=== PATIENT | male | born 1985 | race Asian ===

== ENCOUNTER → 2024-11-28 | Day surgery (SDC) | payer OTHER ==
[~2024-11-28] MED LIST: BUPIVACAINE 0.5%/EPI 30 ML SDV INJ ONE; BUPIVACAINE LIPOSOME/PF 266 MG/20 ML IJ ONE; CBD GUMMIES PO; CYCLOBENZAPRINE10 MG PO; DEXAMETHASONE SOD PHOS INJ 4 MG/ML SDV ONE; FENTANYL CITRATE/PF 100MCG/2 ML INJ ONE; HYDROCODON-ACE1 EAC9 PO; LIDOCAINE HCL 2% LOCAL INJ 5 ML SDV VIAL INJ ONE; MAGNESIUM PO; MIDAZOLAM HCL 2 MG/2 ML VIAL ONE; ONDANSETRON HCL INJ 2MG/ML 2ML 2 MG/ML VIAL ONE; PROPOFOL IV EMULSION 10 MG/ML 20 ML VIAL ONE; SUCCINYLCHOLINE CHLORIDE 20 MG/ML 10ML VIAL ONE
[2024-11-28] MEDS: LACTATED RINGER'S 1,000 ML ONE (06:21)
[2024-11-28] MEDS: CEFAZOLIN SODIUM 2 GM ONE (06:21)
[2024-11-28 09:30] VITALS: TEMP 97.3
[2024-11-28] MEDS: CEFTRIAXONE 1 GM VIAL ONE (09:49)
[2024-11-28 11:10] VITALS: BP 132/85; PULSE 90; RESP 16; O2SAT 98
== END | disposition home or self-care (01) ==
LOC: OR 05:41
PROVIDERS: ATTEND Behavior Technician
DX: S52.032A Displaced fracture of olecranon process with intraarticular extension of left ulna, initial encounter for closed fracture (principal); V29.99XA Rider (driver) (passenger) of other motorcycle injured in unspecified traffic accident, initial encounter; Y92.410 Unspecified street and highway as the place of occurrence of the external cause
CPT/HCPCS: 24685; C1713 ×10; C1769; C1776; J0330; J0666; J0696; J1100; J2003; J2250; J2405; J2704; J3010; J7121; 76000